=== PATIENT | male | born 1970 | race African-American/Black ===

== ENCOUNTER 2017-10-28 14:42 | Emergency (ER) | payer MEDICAID, OTHER ==
[~2017-10-28] VITALS: Ht 162.6 cm; Wt 70.0 kg
[2017-10-28] MEDS ORDERED: KETOROLAC 60MG/2ML VIAL IM STA (15:41)
[2017-10-28 15:54] LABS: CLARITY URINE CLEAR (CLEAR); COLOR URINE DARK YELLOW (YELLOW); KETONES URINE TRACE (NEGATIVE); LEUKOCYTE ESTERASE URINE NEGATIVE (NEGATIVE); NITRITE URINE NEGATIVE (NEGATIVE); OCCULT BLOOD URINE NEGATIVE (NEGATIVE); PH URINE 6.5 (4.5-8.0); PROTEIN URINE NEGATIVE (NEGATIVE); SPECIFIC GRAVITY URINE 1.029 (1.005-1.030)
[2017-10-28 16:13] LABS: BASOPHILS % 0.7 % (0.0-2.0); EOSINOPHILS % 1.2 % (0.0-5.0); HEMOGLOBIN. 13.8 g/dL (14.0-18.0); LYMPHOCYTES % 55.1 % (20.0-50.0); MEAN CORPUSCULAR HEMOGLOBIN 31.9 pg (28.0-32.0); MEAN CORPUSCULAR VOLUME 92.7 fL (80.0-94.0); MONOCYTES % 10.5 % (2.0-8.0); NEUTROPHILS % 32.5 % (40.0-76.0); PLATELET 236 x1000/uL (130-400); RED BLOOD CELL COUNT 4.32 mill/uL (4.7-6.1); RED CELL DISTRIBUTION WIDTH 13.8 % (11.6-14.6)
[2017-10-28 16:15] LABS: CHLORIDE 110 mEq/L (98-107)
[2017-10-28 17:20] VITALS: BP 115/76
== END 2017-10-28 16:10 | disposition home or self-care (01) ==
LOC: ER 15:45
DX: K59.00 Constipation, unspecified (principal); F17.200 Nicotine dependence, unspecified, uncomplicated; F12.10 Cannabis abuse, uncomplicated
CPT/HCPCS: 36415; 74176; 80053; 81003; 83690; 85025; 96372; 99285; J1885; Z7610

== ENCOUNTER 2023-03-08 10:28 | Emergency (ER) | payer MEDICAID ==
[~2023-03-08] VITALS: Ht 172.7 cm; Wt 68.0 kg
[2023-03-08 10:33] VITALS: BP 112/76; PULSE 75; RESP 18; TEMP 98.2; O2SAT 95
[2023-03-08 11:03] LABS: INR 1.1; PROTHROMBIN TIME 11.3 sec (9.6-11.0)
[2023-03-08 11:13] LABS: CHLORIDE 106 mEq/L (98-107); INDEX HEMOLYSI 1 (1-3); INDEX ICTERIC 1 (1-4); INDEX LIPEMIC 1 (1-3); SODIUM 138 mEq/L (136-145)
[2023-03-08 11:21] LABS: ALANINE AMINOTRANSFERASE 150 IU/L (13-61); ALBUMIN 3.7 g/dL (3.4-5.0); ASPARTATE AMINOTRANSFERASE 118 IU/L (15-37); BILIRUBIN TOTAL 0.7 mg/dL (0.1-1.0); CALCIUM 8.5 mg/dL (8.5-10.1); CARBON DIOXIDE 30 mEq/L (21-32); CREATININE 0.7 mg/dL (0.6-1.3); GLUCOSE 75 mg/dL (70-105); PROTEIN TOTAL 7.2 g/dL (6.0-8.3); TROPONIN I HIGH SENSITIVITY 6 ng/L (<78); UREA NITROGEN BLOOD 11 mg/dL (7-21)
[2023-03-08 12:15] LABS: CLARITY URINE CLEAR (CLEAR); COLOR URINE YELLOW (YELLOW); GLUCOSE URINE NEGATIVE (NEGATIVE); KETONES URINE NEGATIVE (NEGATIVE); LEUKOCYTE ESTERASE URINE NEGATIVE (NEGATIVE); NITRITE URINE NEGATIVE (NEGATIVE); OCCULT BLOOD URINE NEGATIVE (NEGATIVE); PH URINE 8.5 (4.5-8.0); PROTEIN URINE NEGATIVE (NEGATIVE); SPECIFIC GRAVITY URINE 1.016 (1.005-1.030); UROBILINOGEN URINE 0.2 E.U./dL (0.2-1.0)
[2023-03-08 12:52] LABS: BASOPHILS % 0.7 % (0.0-2.0); EOSINOPHILS % 0.9 % (0.0-5.0); HEMATOCRIT. 37.1 % (42.0-52.0); HEMOGLOBIN. 12.4 g/dL (14.0-18.0); MEAN CORPUSCULAR HEMOGLOBIN 30.3 pg (28.0-32.0); MEAN CORPUSCULAR HGB CONC 33.6 g/dL (31.0-37.0); MEAN CORPUSCULAR VOLUME 90.4 fL (80.0-94.0); MEAN PLATELET VOLUME 8.2 fl (7.4-10.4); MONOCYTES % 10.6 % (2.0-8.0); NEUTROPHILS % 28.8 % (40.0-76.0); PLATELET 220 x1000/uL (130-400); RED CELL DISTRIBUTION WIDTH 13.6 % (11.6-14.6); WHITE BLOOD COUNT 3.1 x1000/uL (4.5-11.0)
== END 2023-03-08 13:23 | disposition left against medical advice (07) ==
LOC: ER 10:28
DX: R07.89 Other chest pain (principal); R79.89 Other specified abnormal findings of blood chemistry; F12.10 Cannabis abuse, uncomplicated
CPT/HCPCS: 36415; 71045; 80053; 81003; 84484; 85025; 93005; 99285

== ENCOUNTER 2023-05-06 15:27 | Emergency (ER) | payer MEDICAID ==
[~2023-05-06] VITALS: Ht 175.3 cm; Wt 73.0 kg
[2023-05-06 16:24] VITALS: BP 116/70; PULSE 65; RESP 16; TEMP 98.4
== END 2023-05-06 17:38 | disposition left against medical advice (07) ==
LOC: ER 15:31
DX: M79.601 Pain in right arm (principal); Z53.21 Procedure and treatment not carried out due to patient leaving prior to being seen by health care provider
CPT/HCPCS: 99281